=== PATIENT | female | born 1980 | race American Indian/Alaskan Native ===

== ENCOUNTER 2017-01-26 04:08 | Emergency (ER) | payer SELFPAY ==
[2017-01-26 04:32] VITALS: BP 148/80
[2017-01-26 05:00] LABS: Basophils % (Auto) 1.1 % (0.0-1.8); Eosinophils % (Auto) 0.8 % (0.0-4.3); Hematocrit 41.6 % (30.3-42.9); Hemoglobin 13.5 gm/dl (10.1-14.3); Mean Corpuscular HGB Conc 33 % (30-34); Mean Corpuscular Hemoglobin 31 pg (28-32); Mean Corpuscular Volume 95 fl (79-97); Platelet Count 395 K/mm3 (140-440); Red Blood Count 4.38 M/mm3 (3.65-5.03); Red Cell Distribution Width 14.6 % (13.2-15.2); White Blood Count 9.2 K/mm3 (4.5-11.0)
[2017-01-26 05:07] LABS: Anion Gap 13 mmol/L; BUN/Creatinine Ratio 11.11; Blood Urea Nitrogen 10 mg/dL (7-17); Calcium 9.3 mg/dL (8.4-10.2); Carbon Dioxide 31 mmol/L (22-30); Chloride 99.8 mmol/L (98-107); Glucose 111 mg/dL (65-100); Potassium 4.1 mmol/L (3.6-5.0); Sodium 140 mmol/L (137-145)
[2017-01-26 05:10] LABS: INR 2.35 (0.87-1.13); Partial Thromboplastin Time 49.8 Sec. (24.2-36.6)
== END 2017-01-26 04:45 | disposition left against medical advice (07) ==
LOC: ED 04:08
DX: M79.651 Pain in right thigh (principal); Z53.21 Procedure and treatment not carried out due to patient leaving prior to being seen by health care provider
CPT/HCPCS: 36415; 80048; 85025; 85610; 85730

== ENCOUNTER 2019-01-22 17:54 | Emergency (ER) | payer SELFPAY ==
--- NOTE | 2019-01-22 18:08 | Emergency Department Report ---
Blank Doc - Documentation Documentation: This is a 38-year-old female that presents with chest pain and SOB. HX of DVT/ PE. This initial assessment/diagnostic orders/clinical plan/treatment(s) is/are subject to change based on patient's health status, clinical progression and re- assessment by fellow clinical providers in the ED. Further treatment and workup at subsequent clinical providers discretion. Patient/guardians urged not to elope from the ED as their condition may be serious if not clinically assessed and managed. Initial orders include: 1- Patient sent to MAIN ED for further evaluation and treatment 2- labs 3- EKG 4- CXR
[2019-01-22 18:32] LABS: Basophils # (Auto) 0.1 K/mm3 (0.0-0.1); Basophils % (Auto) 1.1 % (0.0-1.8); Eosinophils # (Auto) 0.1 K/mm3 (0.0-0.4); Eosinophils % (Auto) 0.7 % (0.0-4.3); Hematocrit 40.1 % (30.3-42.9); Hemoglobin 13.5 gm/dl (10.1-14.3); Lymphocytes # (Auto) 1.6 K/mm3 (1.2-5.4); Lymphocytes % (Auto) 17.7 % (13.4-35.0); Mean Corpuscular HGB Conc 34 % (30-34); Mean Corpuscular Volume 95 fl (79-97); Monocytes # (Auto) 0.6 K/mm3 (0.0-0.8); Monocytes % (Auto) 6.2 % (0.0-7.3); Platelet Count 412 K/mm3 (140-440); Red Blood Count 4.22 M/mm3 (3.65-5.03); Red Cell Distribution Width 14.7 % (13.2-15.2)
[2019-01-22 18:48] LABS: INR 1.02 (0.87-1.13); Partial Thromboplastin Time 23.5 Sec. (24.2-36.6)
[2019-01-22 19:25] LABS: BUN/Creatinine Ratio 7; Blood Urea Nitrogen 7 mg/dL (7-17); Calcium 8.7 mg/dL (8.4-10.2); Hemolysis Index 89
--- NOTE | 2019-01-22 19:47 | XRay Report ---
CHEST 2 VIEWS INDICATION / CLINICAL INFORMATION: Chest Pain. Cough. COMPARISON: None available. FINDINGS: SUPPORT DEVICES: None. HEART / MEDIASTINUM: The heart size and pulmonary vasculature are normal. The aorta is normal in adela eriberto. LUNGS / PLEURA: No significant pulmonary or pleural abnormality. No pneumothorax. ADDITIONAL FINDINGS: No significant additional findings. IMPRESSION: No acute findings. Signer Name: Chris Kessler MD Signed: 01/22/2019 7:42 PM Workstation Name: [id number]
[2019-01-22] MEDS ORDERED: DUONEB *Not for PRN Use IH ONE (19:57)
[2019-01-22] MEDS ORDERED: MAXIPIME/NS 1 GM/100 ML 1 GM/100 ML BAG IV ONE (20:01)
[2019-01-22] MEDS ORDERED: SOLU-Medrol IV ONE (20:01)
--- NOTE | 2019-01-22 20:01 | Emergency Department Report ---
ED General Adult HPI - General Chief complaint: Chest Pain Stated complaint: FLU SYMPTOMS Time Seen by Provider: 01/22/19 18:07 Source: patient Mode of arrival: Ambulatory Limitations: No Limitations - History of Present Illness Initial comments: Patient is a 38-year-old female that presented to emergency with complaints of chest pain, shortness of breath and cough 1 week. Patient denies fever and chills. Patient states her symptoms are worsening. Patient states she has a history of DVT and PE but was taken off of her warfarin 1 year ago due to her PE resolving. Patient states her chest pain is better with rest and worse with coughing and palpation. Patient states her shortness of breath is better with rest and worse with exertion. Patient states her cough is dry. -: Sudden Severity scale (0 -10): 3 Quality: aching Consistency: constant Improves with: rest Worsens with: movement Associated Symptoms: chest pain, cough, shortness of breath. denies: confusion, diaphoresis, fever/chills, headaches, loss of appetite, nausea/vomiting, rash, seizure, syncope, weakness Treatments Prior to Arrival: none - Related Data Home Medications Medication Instructions Recorded Confirmed Last Taken Coumadin 7.5 mg PO DAILY 01/26/17 01/26/17 Unknown Previous Rx's Medication Instructions Recorded Last Taken Type ALBUTEROL Inhaler (OR & NICU) 2 puff IH QID PRN #1 inhalation 01/22/19 Unknown Rx [Proair] DOXYCYCLINE Hyclate [Vibramycin 100 mg PO Q12HR 10 Days #20 capsule 01/22/19 Unknown Rx CAP] methylPREDNISolone [Medrol 4MG 4 mg PO DAILY 6 Days #1 tab.ds.pk 01/22/19 Unknown Rx DOSEPAK (21 tabs)] Allergies Allergy/AdvReac Type Severity Reaction Status Date / Time No Known Allergies Allergy Unverified 01/26/17 04:32 ED Review of Systems ROS: Stated complaint: FLU SYMPTOMS Other details as noted in HPI Constitutional: denies: chills, fever Eyes: denies: eye pain, eye discharge, vision change ENT: denies: ear pain, throat pain Respiratory: cough, shortness of breath, SOB with exertion, SOB at rest, wheezing Cardiovascular: chest pain. denies: palpitations Endocrine: no symptoms reported Gastrointestinal: denies: abdominal pain, nausea, diarrhea Genitourinary: denies: urgency, dysuria, discharge Musculoskeletal: denies: back pain, joint swelling, arthralgia Skin: denies: rash, lesions Neurological: denies: headache, weakness, paresthesias Psychiatric: denies: anxiety, depression Hematological/Lymphatic: denies: easy bleeding, easy bruising ED Past Medical Hx - Past Medical History Previous Medical History?: Yes Additional medical history: DVT, PE, Morbid Obesity - Surgical History Past Surgical History?: No - Family History Family history: no significant - Social History Smoking Status: Current Every Day Smoker Substance Use Type: None - Medications Home Medications: Home Medications Medication Instructions Recorded Confirmed Last Taken Type Coumadin 7.5 mg PO DAILY 01/26/17 01/26/17 Unknown History ALBUTEROL Inhaler (OR & NICU) 2 puff IH QID PRN #1 inhalation 01/22/19 Unknown Rx [Proair] DOXYCYCLINE Hyclate [Vibramycin 100 mg PO Q12HR 10 Days #20 capsule 01/22/19 Unknown Rx CAP] methylPREDNISolone [Medrol 4MG 4 mg PO DAILY 6 Days #1 tab.ds.pk 01/22/19 Unknown Rx DOSEPAK (21 tabs)] ED Physical Exam - General Limitations: No Limitations General appearance: alert, in no apparent distress - Head Head exam: Present: atraumatic, normocephalic - Eye Eye exam: Present: normal appearance - ENT ENT exam: Present: mucous membranes moist - Neck Neck exam: Present: normal inspection - Respiratory Respiratory exam: Present: wheezes, chest wall tenderness. Absent: respiratory distress - Cardiovascular Cardiovascular Exam: Present: regular rate, normal rhythm. Absent: systolic mur mur, diastolic murmur, rubs, gallop - GI/Abdominal GI/Abdominal exam: Present: soft, normal bowel sounds - Extremities Exam Extremities exam: Present: normal inspection - Back Exam Back exam: Present: normal inspection - Neurological Exam Neurological exam: Present: alert, oriented X3 - Psychiatric Psychiatric exam: Present: normal affect, normal mood - Skin Skin exam: Present: warm, dry, intact, normal color. Absent: rash ED Course Vital Signs 01/22/19 01/22/19 01/22/19 18:07 19:51 20:17 Temperature 97.8 F 98.2 F Pulse Rate 111 H 93 H Pulse Rate [ 93 H Bilateral] Respiratory 22 17 Rate Respiratory 16 Rate [Bilateral ] Blood Pressure 183/102 Blood Pressure 159/86 [Left] O2 Sat by Pulse 96 94 Oximetry - Reevaluation(s) Reevaluation #1: Patient found to have wheezing on initial exam. Patient will be given Solu- Medrol and antibiotic as well as a DuoNeb. His d-dimer elevated and patient have nuclear study due to her history of PE and her symptoms. 01/22/19 20:00 Patient's lung sounds clear. Patient states she is feeling better. Patient's VQ scan pending. 01/22/19 20:55 Reevaluation #2: Patient states her symptoms have improved and her chest pain and shortness of breath have resolved. Patient's lung sounds are clear.. Discussed all results with patient. Patient is stable for discharge. Patient will be discharged home. Patient agrees to plan of care. Patient given discharge instructions. Patient voiced understanding of discharge instructions. 01/22/19 22:19 ED Medical Decision Making - Lab Data Result diagrams: 01/22/19 18:13 01/22/19 18:13 - EKG Data -: EKG Interpreted by Ne EKG shows normal: sinus rhythm, axis, intervals, QRS complexes, ST-T waves Rate: tachycardia - Radiology Data Radiology results: report reviewed Nuclear medicine ventilation/perfusion lung imaging. 01/22/2019. HISTORY: Shortness of breath. COMPARISON: Chest x-ray 01/22/2019. Tracer: Xenon-133 gas 21.7 mCi inhalation and technetium 99m MAA 4.9 mCi IV injection. FINDINGS: Nuclear medicine ventilation/perfusion lung imaging was performed. Both are relatively homogeneous. Negative for suspicious ventilation or perfusion defect. IMPRESSION: Low probability for pulmonary embolus. CHEST 2 VIEWS INDICATION / CLINICAL INFORMATION: Chest Pain. Cough. COMPARISON: None available. FINDINGS: SUPPORT DEVICES: None. HEART / MEDIASTINUM: The heart size and pulmonary vasculature are normal. The aorta is normal in caliber. LUNGS / PLEURA: No significant pulmonary or pleural abnormality. No pneumothorax. ADDITIONAL FINDINGS: No significant additional findings. IMPRESSION: No acute findings - Medical Decision Making Patient is a 38-year-old female that presents emergency room with complaints of chest pain, shortness of breath and cough 1 week. Patient on initial evaluation found to be wheezing. Patient was given site Medrol and DuoNeb and symptoms improved. Patient states her shortness breath chest pain resolved prior to discharge and after the breathing treatment. The patient had a history of PE and due to her complaints patient had a nuclear scan done which was negative and showed low probability. Patient's chest x-ray negative. Patient's EKG negative. Patient was initially tachycardic but after medications patient's heart rate returned to normal. Patient's symptoms were resolved prior to discharge. Patient given discharge instructions. - Differential Diagnosis chest pain. Shortness of breath. Bronchitis. Wheezing. Cough. URI. Critical care attestation.: If time is entered above; I have spent that time in minutes in the direct care of this critically ill patient, excluding procedure time. ED Disposition Clinical Impression: SOB (shortness of breath), Bronchitis, Cough Chest pain Qualifiers: Chest pain type: unspecified Qualified Code(s): R07.9 - Chest pain, unspecified Disposition: TO HOME OR SELFCARE Is pt being admited?: No Does the pt Need Aspirin: No Condition: Stable Instructions: Chest Pain (ED), Acute Bronchitis (ED) Additional Instructions: Patient to follow-up with primary care in 2-3 days. Patient to take Tylenol or ibuprofen when necessary for pain. Patient to return to ER if condition worsens. Patient to take meds as directed. Patient to increase water. Patient to rest. Patient to continue all meds. Prescriptions: methylPREDNISolone [Medrol 4MG DOSEPAK (21 tabs)] 4 mg PO DAILY 6 Days #1 tab.ds.pk ALBUTEROL Inhaler (OR & NICU) [Proair] 2 puff IH QID PRN #1 inhalation PRN Reason: Shortness Of Breath DOXYCYCLINE Hyclate [Vibramycin CAP] 100 mg PO Q12HR 10 Days #20 capsule Referrals: LUPE RODRIGUEZ MD [Staff Physician] - 2-3 Days Time of Disposition: 22:29
--- NOTE | 2019-01-22 22:14 | Nuclear Medicine Report ---
Nuclear medicine ventilation/perfusion lung imaging. 01/22/2019. HISTORY: Shortness of breath. COMPARISON: Chest x-ray 01/22/2019. Tracer: Xenon-133 gas 21.7 mCi inhalation and technetium 99m MAA 4.9 mCi IV injection. FINDINGS: Nuclear medicine ventilation/perfusion lung imaging was performed. Both are relatively homo geneous. Negative for suspicious ventilation or perfusion defect. IMPRESSION: Low probability for pulmonary embolus. Signer Name: Carl Esteves MD Signed: 01/22/2019 10:10 PM Workstation Name: [id number]
[2019-01-22 22:52] VITALS: BP 153/99
== END 2019-01-22 22:51 | disposition home or self-care (01) ==
LOC: ED 17:54
DX: J40 Bronchitis, not specified as acute or chronic (principal); R07.89 Other chest pain
CPT/HCPCS: 36415; 71046; 78582; 80048; 84484; 84703; 85025; 85379; 85610; 85730; 93005; 93010; 96365; 96375; 99284; A9540; A9558; J0692; J2930

== ENCOUNTER 2019-05-05 18:43 | Emergency (ER) | payer SELFPAY ==
--- NOTE | 2019-05-05 19:32 | Emergency Department Report ---
Blank Doc - Documentation Documentation: 38-year-old female that presents with right calf pain. This initial assessment/diagnostic orders/clinical plan/treatment(s) is/are subject to change based on patient's health status, clinical progression and re- assessment by fellow clinical providers in the ED. Further treatment and workup at subsequent clinical providers discretion. Patient/guardians urged not to elope from the ED as their condition may be serious if not clinically assessed and managed. Initial orders include: 1- Patient sent to [facility] for further evaluation and treatment 2- Doppler US
[2019-05-05] MEDS ORDERED: PERCOCET 5/325 PO ONE (22:00)
[2019-05-05] MEDS ORDERED: PERCOCET 5/325 ONE (22:05)
--- NOTE | 2019-05-05 23:58 | Vascular Lab Report ---
DUPLEX DOPPLER LOWER EXTREMITY VEINS, RIGHT INDICATION: right leg pain. TECHNIQUE: Duplex doppler imaging was performed through the veins of the right lower extremity using venous comp ression and other maneuvers. COMPARISON: None available. FINDINGS: Common Femoral vein: Positive. Superficial Femoral vein: Positive. Popliteal vein: Positive. Calf veins: Negative. Additional findings: None. IMPRESSION: Deep vein thrombosis near occlusive involving the right common femoral vein, femoral vein or poplitea l vein. Signer Name: Alexis Grimaldo MD Signed: 05/05/2019 11:53 PM Workstation Name: [id number]
[2019-05-06] MEDS ORDERED: ELIQUIS PO ONE (00:27)
[2019-05-06] MEDS ORDERED: PERCOCET 5/325 PO ONE (01:08)
[2019-05-06] MEDS ORDERED: PERCOCET 5/325 ONE (01:12)
--- NOTE | 2019-05-06 01:31 | Emergency Department Report ---
ED Extremity Problem HPI - General Chief complaint: Extremity Injury, Lower Stated complaint: CHEST PAIN/RT LEG/R SHOULDER PAIN Time Seen by Provider: 05/05/19 19:31 Source: patient Mode of arrival: Wheelchair Limitations: No Limitations - History of Present Illness Initial comments: Patient is a 38-year-old female who has a past medical history of bilateral DVT who is on Coumadin for 6 months who is presenting with right leg pain. Patient states that over the last month her leg is progressively been worsening in pain. Patient states pain started behind the right knee was progressed to up to the posterior thigh. Patient states that she has no chest pain but has had a dry cough for the last several days. He is not describing an y shortness of breath. Patient denies hemoptysis nausea vomiting diarrhea or fever. Severity scale (0 -10): 8 - Related Data Home Medications Medication Instructions Recorded Confirmed Last Taken Coumadin 7.5 mg PO DAILY 01/26/17 01/26/17 Unknown Previous Rx's Medication Instructions Recorded Last Taken Type ALBUTEROL Inhaler (OR & NICU) 2 puff IH QID PRN #1 inhalation 01/22/19 Unknown Rx [Proair] DOXYCYCLINE Hyclate [Vibramycin 100 mg PO Q12HR 10 Days #20 capsule 01/22/19 Unknown Rx CAP] methylPREDNISolone [Medrol 4MG 4 mg PO DAILY 6 Days #1 tab.ds.pk 01/22/19 Unknown Rx DOSEPAK (21 tabs)] Apixaban [Eliquis] 10 mg PO BID 30 Days tablet 05/06/19 Unknown Rx oxyCODONE /ACETAMINOPHEN [Percocet 1 tab PO Q6HR PRN #10 tablet 05/06/19 Unknown Rx 5/325] Allergies Allergy/AdvReac Type Severity Reaction Status Date / Time No Known Allergies Allergy Unverified 01/26/17 04:32 ED Review of Systems ROS: Stated complaint: CHEST PAIN/RT LEG/R SHOULDER PAIN Other details as noted in HPI Comment: All other systems reviewed and negative ED Past Medical Hx - Past Medical History Previous Medical History?: Yes Hx Pulmonary Embolism: Yes Additional medical history: DVT, PE, Morbid Obesity - Social History Smoking Status: Current Some Day Smoker - Medications Home Medications: Home Medications Medication Instructions Recorded Confirmed Last Taken Type Coumadin 7.5 mg PO DAILY 01/26/17 01/26/17 Unknown History ALBUTEROL Inhaler (OR & NICU) 2 puff IH QID PRN #1 inhalation 01/22/19 Unknown Rx [Proair] DOXYCYCLINE Hyclate [Vibramycin 100 mg PO Q12HR 10 Days #20 capsule 01/22/19 Unknown Rx CAP] methylPREDNISolone [Medrol 4MG 4 mg PO DAILY 6 Days #1 tab.ds.pk 01/22/19 Unknown Rx DOSEPAK (21 tabs)] Apixaban [Eliquis] 10 mg PO BID 30 Days tablet 05/06/19 Unknown Rx oxyCODONE /ACETAMINOPHEN [Percocet 1 tab PO Q6HR PRN #10 tablet 05/06/19 Unknown Rx 5/325] ED Physical Exam - General Limitations: No Limitations General appearance: alert, in no apparent distress - Head Head exam: Present: atraumatic, normocephalic - Eye Eye exam: Present: normal appearance - ENT ENT exam: Present: mucous membranes moist - Neck Neck exam: Present: normal inspection - Respiratory Respiratory exam: Present: normal lung sounds bilaterally. Absent: respiratory distress, wheezes, rales, rhonchi - Cardiovascular Cardiovascular Exam: Present: regular rate, normal rhythm, normal heart sounds. Absent: systolic murmur, diastolic murmur, rubs, gallop - GI/Abdominal GI/Abdominal exam: Present: soft, normal bowel sounds. Absent: distended, tenderness, guarding, rebound - Extremities Exam Extremities exam: Present: normal inspection, tenderness (to the posterior right knee without significant swelling). Absent: joint swelling, calf tenderness - Back Exam Back exam: Present: normal inspection - Neurological Exam Neurological exam: Present: alert, oriented X3 - Psychiatric Psychiatric exam: Present: normal affect, normal mood - Skin Skin exam: Present: warm, dry, intact, normal color. Absent: rash ED Course Vital Signs 05/05/19 18:50 Temperature 98.2 F Pulse Rate 118 H Respiratory 18 Rate Blood Pressure 154/101 O2 Sat by Pulse 95 Oximetry ED Medical Decision Making - Radiology Data [facility] [address] [place] [address] Vascular Lab Report Signed Patient: EDWIN LU MR#: [id number] : 1980 Acct:[id number] Age/Sex: 38 / F ADM Date: 05/05/19 Loc: ED Attending Dr: Ordering Physician: BRIANDA YANG NP Date of Service: 05/05/19 Procedure(s): VL venous duplex LE RT Accession Number(s): [id number] cc: BRIANDA YANG NP DUPLEX DOPPLER LOWER EXTREMITY VEINS, RIGHT INDICATION: right leg pain. TECHNIQUE: Duplex doppler imaging was performed through the veins of the right lower extremity using venous compression and other maneuvers. COMPARISON: None available. FINDINGS: Common Femoral vein: Positive. Superficial Femoral vein: Positive. Popliteal vein: Positive. Calf veins: Negative. Additional findings: None. IMPRESSION: Deep vein thrombosis near occlusive involving the right common femoral vein, femoral vein or popliteal vein. Signer Name: Alexis Grimaldo MD Signed: 05/05/2019 11:53 PM Workstation Name: [id number] Transcribed By: BC Dictated By: Alexis Grimaldo MD Electronically Authenticated By: Alexis Grimaldo MD Signed Date/Time: 05/05/192352 DD/ 51 - Medical Decision Making * Patient is a 38-year-old [place] female who has an acute right-sided DVT. Patient has a good support system and we will start the patient on Eliquis. Patient will be given follow-up with Dr. Dickerson. She is unable to follow-up with Dr. Dickerson in the next week patient also can follow assess at [facility]. Patient's renal function several months ago was within normal limits. Critical care attestation.: If time is entered above; I have spent that time in minutes in the direct care of this critically ill patient, excluding procedure time. ED Disposition Clinical Impression: DVT (deep venous thrombosis) Qualifiers: DVT location: lower extremity Affected thrombotic vein of extremity: unspecified lower extremity distal vein Chronicity: acute Laterality: right Qualified Code(s): I82.4Z1 - Acute embolism and thrombosis of unspecified deep veins of right distal lower extremity Disposition: DC-01 TO HOME OR SELFCARE Is pt being admited?: No Does the pt Need Aspirin: No Condition: Stable Instructions: Deep Venous Thrombosis (ED) Additional Instructions: If you're unable to see Dr. Dickerson for follow-up this week please follow with [facility] as they have a primary care physicians. Prescriptions: Apixaban [Eliquis] 10 mg PO BID 30 Days tablet oxyCODONE /ACETAMINOPHEN [Percocet 5/325] 1 tab PO Q6HR PRN #10 tablet PRN Reason: Pain Referrals: SHRAVAN DICKERSON MD [Staff Physician] - 3-5 Days RUETER SILVERIO DUMONT MD [Referring] - 3-5 Days Time of Disposition: 01:31
[2019-05-06 05:41] VITALS: BP 151/98
== END 2019-05-06 01:55 | disposition home or self-care (01) ==
LOC: ED 18:43
DX: I82.4Z1 Acute embolism and thrombosis of unspecified deep veins of right distal lower extremity (principal); F17.200 Nicotine dependence, unspecified, uncomplicated; Z86.711 Personal history of pulmonary embolism; Z79.01 Long term (current) use of anticoagulants; Z86.718 Personal history of other venous thrombosis and embolism; E66.01 Morbid (severe) obesity due to excess calories; Z79.899 Other long term (current) drug therapy